=== PATIENT | female | born 1945 | race Caucasian/White ===

== ENCOUNTER 2018-08-13 11:27 | Emergency (ER) | payer MEDICARE, BC ==
[~2018-08-13] VITALS: Ht 170.2 cm; Wt 90.0 kg
[~2018-08-13 11:27] MED LIST: ONDA8TAB9 PO
[2018-08-13 12:25] VITALS: BP 143/62
== END 2018-08-13 14:58 | disposition home or self-care (01) ==
LOC: ER 11:27
DX: S82.831A Other fracture of upper and lower end of right fibula, initial encounter for closed fracture (principal); E11.40 Type 2 diabetes mellitus with diabetic neuropathy, unspecified; Z90.89 Acquired absence of other organs; Z85.3 Personal history of malignant neoplasm of breast; W18.30XA Fall on same level, unspecified, initial encounter; Y93.01 Activity, walking, marching and hiking; Y92.89 Other specified places as the place of occurrence of the external cause; Y99.8 Other external cause status
CPT/HCPCS: 73610; 73630; 99284

== ENCOUNTER 2018-08-19 11:27 | Outpatient (CLI) | payer MEDICARE, BC ==
[2018-08-19 11:17] VITALS: BP 142/53
== END 2018-08-19 12:08 | disposition home or self-care (01) ==
LOC: ORTHO 11:27
PROVIDERS: ATTEND Nurse Practitioner Family
DX: S82.832A Other fracture of upper and lower end of left fibula, initial encounter for closed fracture (principal); E11.40 Type 2 diabetes mellitus with diabetic neuropathy, unspecified; Z90.89 Acquired absence of other organs; Z85.3 Personal history of malignant neoplasm of breast; W18.30XA Fall on same level, unspecified, initial encounter; Y93.01 Activity, walking, marching and hiking; Y92.89 Other specified places as the place of occurrence of the external cause; Y99.8 Other external cause status
CPT/HCPCS: 99213

== ENCOUNTER 2018-08-25 11:24 | Outpatient (CLI) | payer MEDICARE, BC ==
[2018-08-25 11:19] VITALS: BP 127/56
== END 2018-08-25 11:49 | disposition home or self-care (01) ==
LOC: ORTHO 11:24
PROVIDERS: ATTEND Nurse Practitioner Family
DX: S82.831D Other fracture of upper and lower end of right fibula, subsequent encounter for closed fracture with routine healing (principal); E11.40 Type 2 diabetes mellitus with diabetic neuropathy, unspecified; Z90.89 Acquired absence of other organs; Z85.3 Personal history of malignant neoplasm of breast; W18.30XD Fall on same level, unspecified, subsequent encounter
CPT/HCPCS: 73610; 99213

== ENCOUNTER 2018-09-02 09:38 | Outpatient (CLI) | payer MEDICARE, BC ==
[2018-09-02 09:39] VITALS: BP 112/59
== END 2018-09-02 09:58 | disposition home or self-care (01) ==
LOC: ORTHO 09:38
PROVIDERS: ATTEND Nurse Practitioner Family
DX: S82.831D Other fracture of upper and lower end of right fibula, subsequent encounter for closed fracture with routine healing (principal); E11.40 Type 2 diabetes mellitus with diabetic neuropathy, unspecified; W18.30XD Fall on same level, unspecified, subsequent encounter
CPT/HCPCS: 99213; A4590

== ENCOUNTER 2018-09-16 10:44 | Outpatient (CLI) | payer MEDICARE, BC ==
[2018-09-16 11:07] VITALS: BP 108/52
== END 2018-09-16 11:08 | disposition home or self-care (01) ==
LOC: ORTHO 10:44
PROVIDERS: ATTEND Nurse Practitioner Family
DX: S82.831D Other fracture of upper and lower end of right fibula, subsequent encounter for closed fracture with routine healing (principal); S82.51XD Displaced fracture of medial malleolus of right tibia, subsequent encounter for closed fracture with routine healing; E11.40 Type 2 diabetes mellitus with diabetic neuropathy, unspecified; X50.1XXD Overexertion from prolonged static or awkward postures, subsequent encounter
CPT/HCPCS: 73610; 99213

== ENCOUNTER 2018-10-14 12:21 | Outpatient (CLI) | payer MEDICARE, BC | END 2018-10-14 13:02 | disposition home or self-care (01) | LOC: ORTHO 12:21 | PROVIDERS: ATTEND Orthopaedic Surgery | DX: S82.831D Other fracture of upper and lower end of right fibula, subsequent encounter for closed fracture with routine healing (principal); S82.51XD Displaced fracture of medial malleolus of right tibia, subsequent encounter for closed fracture with routine healing; M19.071 Primary osteoarthritis, right ankle and foot; X58.XXXD Exposure to other specified factors, subsequent encounter | CPT/HCPCS: 73610; 99213 ==

== ENCOUNTER 2018-11-12 11:09 | Outpatient (CLI) | payer MEDICARE, BC | END 2018-11-12 11:30 | disposition home or self-care (01) | LOC: ORTHO 11:09 | PROVIDERS: ATTEND Orthopaedic Surgery | DX: S82.831D Other fracture of upper and lower end of right fibula, subsequent encounter for closed fracture with routine healing (principal); S82.51XD Displaced fracture of medial malleolus of right tibia, subsequent encounter for closed fracture with routine healing; X58.XXXD Exposure to other specified factors, subsequent encounter | CPT/HCPCS: 73610; 99211 ==

== ENCOUNTER 2021-01-01 09:36 | Emergency (ER) | payer MEDICARE, BC ==
[~2021-01-01] VITALS: Ht 170.2 cm; Wt 87.1 kg
[2021-01-01 10:52] VITALS: BP 152/56
[2021-01-01 11:45] LABS: CLARITY,URINE CLOUDY (Clear); COLOR,URINE YELLOW (Yellow); GLUCOSE, URINE >=1000 mg/dl (Neg); KETONES,URINE NEGATIVE (Neg); LEUKOCYTE ESTERASE ,URINE MODERATE (Neg); NITRITES, URINE NEGATIVE (Neg); OCCULT BLOOD,URINE LARGE (Neg); PH,URINE 5.5 (4.8-8.0); PROTEIN,URINE TRACE mg/dl (Neg); UROBILINOGEN,URINE 0.2 E.U/dL (0.2-1.0)
[2021-01-01 11:48] LABS: UA COLLECTION TYPE CLN CATCH MIDSTREAM
[2021-01-01 12:53] LABS: SQUAMOUS EPITHELIAL CELL,UR FEW /LPF (FEW)
[2021-01-01 12:54] LABS: RBC,URINE 20-50 /HPF (0-2); WBC,URINE 20-30 /HPF (0-4)
[2021-01-01 12:55] LABS: BACTERIA,URINE 2+ /HPF (Neg)
[2021-01-02] MEDS ORDERED: LOSA25TA41 PO (07:51)
[2021-01-02] MEDS ORDERED: SIMV-45 PO (07:51)
[2021-01-02] MEDS ORDERED: OSC500T PO (07:51)
[2021-01-02] MEDS ORDERED: GLIP10TA21 PO (07:51)
[2021-01-02] MEDS ORDERED: PIOG45TA64 PO (07:51)
[2021-01-02] MEDS ORDERED: BIOT5000 PO (07:51)
[2021-01-02] MEDS ORDERED: ANAS1TAB10 PO (07:51)
== END 2021-01-01 20:56 | disposition left against medical advice (07) ==
LOC: ER 09:37
DX: M54.9 Dorsalgia, unspecified (principal); Z53.21 Procedure and treatment not carried out due to patient leaving prior to being seen by health care provider
CPT/HCPCS: 81001

== ENCOUNTER 2021-11-17 21:53 | Emergency (ER) | payer MEDICARE, BC ==
[~2021-11-17] VITALS: Ht 170.2 cm; Wt 89.1 kg
[~2021-11-17 21:53] MED LIST changes: +ANAS1TAB10 PO; +BIOT5000 PO; +GLIP10TA21 PO; +LOSA25TA41 PO; -ONDA8TAB9 PO; +OSC500T PO; +PIOG45TA64 PO; +SIMV-45 PO
[2021-11-17] MEDS ORDERED: Cipro HC otic suspension 10ML bottle LEFT EAR STA (22:13)
[2021-11-17 23:09] VITALS: BP 123/85
== END 2021-11-17 23:12 | disposition home or self-care (01) ==
LOC: ER 21:54
DX: S00.412A Abrasion of left ear, initial encounter (principal); R51.9 Headache, unspecified; E11.43 Type 2 diabetes mellitus with diabetic autonomic (poly)neuropathy; Z85.3 Personal history of malignant neoplasm of breast; Z90.49 Acquired absence of other specified parts of digestive tract; Z85.9 Personal history of malignant neoplasm, unspecified; Z79.899 Other long term (current) drug therapy; X58.XXXA Exposure to other specified factors, initial encounter; Y93.89 Activity, other specified; Y92.89 Other specified places as the place of occurrence of the external cause; Y99.8 Other external cause status
CPT/HCPCS: 99285

== ENCOUNTER 2022-11-25 19:18 | Emergency (ER) | payer MEDICARE, BC ==
[~2022-11-25] VITALS: Ht 172.7 cm; Wt 84.5 kg
[2022-11-25 19:23] VITALS: BP 139/72
[2022-11-25] MEDS ORDERED: naproxen 500mg tablet PO ONE (20:35)
== END 2022-11-25 20:58 | disposition home or self-care (01) ==
LOC: ER 19:19
DX: M25.512 Pain in left shoulder (principal); E11.9 Type 2 diabetes mellitus without complications; Z79.899 Other long term (current) drug therapy; Y93.89 Activity, other specified; Y92.89 Other specified places as the place of occurrence of the external cause; Y99.8 Other external cause status
CPT/HCPCS: 73030; 99284